=== PATIENT | male | born 1960 | race Caucasian/White ===

== ENCOUNTER → 2023-05-02 | Outpatient (CLI) | payer BC ==
--- NOTE | 2023-05-07 22:09 | CT ---
EXAMINATION TYPE: CT sinus wo con DATE OF EXAM: 05/02/2023 COMPARISON: None HISTORY: 62-year-old male J32.0, chronic sinusitis CT DLP: 599 mGycm Automated exposure control for dose reduction was used. TECHNIQUE: Noncontrast axial views of the paranasal sinuses were obtained. Coronal and sagittal refor matted images were obtained. FINDINGS: PARANASAL SINUSES: Mild to moderate lobulated mucosal thickening bilateral maxillary sinuses. Individual polyps/mucosal retention cysts measure up to 1.7 cm. Mild mucosal thickening throughout the ethmoid air cells and left sphenoid sinus. Frontal sinuses well pneumatized. There is no air-fluid level. Reactive katie- osteogenesis is not seen. There is no destruction of the osseous white of the paranasal sinuses. THE NASAL CAVITY: The osteomeatal complexes are patent. There is an undulating nasal septum, superiorly deviated towards the right and inferiorly deviated to wards the left. Small left-sided mazin bullosa. The imaged brain and orbits are normal in appearance. Mastoid air cells and middle ear cavities are well pneumatized. Prominent cerumen within the bilatera l external auditory canals. Reformatted images confirm above findings. IMPRESSION: 1. Mild to moderate lobulated mucosal thickening throughout the maxillary sinuses and to a lesser ext ent within the ethmoid air cells. Individual polyps or mucous retention cysts measure up to 1.7 cm. 2. Undulating nasal septum. 3. Prominent cerumen in the bilateral external auditory canals.
== END | disposition home or self-care (01) ==
LOC: RADCTMAIN 15:26
PROVIDERS: ATTEND Otolaryngology
DX: J32.0 Chronic maxillary sinusitis (principal); H61.23 Impacted cerumen, bilateral; J34.2 Deviated nasal septum; J34.89 Other specified disorders of nose and nasal sinuses
CPT/HCPCS: 70486